=== PATIENT | female | born 1990 | race Caucasian/White ===

== ENCOUNTER 2023-11-07 16:39 | Emergency (ER) | payer MEDICAID ==
[~2023-11-07] VITALS: Ht 193 cm; Wt 81.6 kg
[2023-11-07 16:49] VITALS: BP 121/89; PULSE 78; RESP 16; TEMP 98; O2SAT 99
[2023-11-07] MEDS: methocarbamoL 500 MG TAB PO STA (17:35)
[2023-11-07] MEDS: LIDOCAINE 5% 1 EA PATCH TP ONE (17:36)
[2023-11-07] MEDS: KETOROLAC 30 MG/ML VIAL IM ONE (17:40)
[2023-11-07 17:50] LABS: APPEARANCE,URINE CLEAR (CLEAR); BILIRUBIN,URINE 1+ (NEGATIVE); BLOOD, URINE 3+ (NEGATIVE); COLOR,URINE YELLOW (YELLOW); LEUKOCYTE ESTERASE ,URINE NEGATIVE (NEGATIVE); NITRITE, URINE NEGATIVE (NEGATIVE); PROTEIN,URINE 2+ (NEGATIVE); UGLUCOSE NEGATIVE (NEGATIVE); UROBILINOGEN,URINE 0.2 EU/dL (0.2 - 1)
[2023-11-07 18:03] LABS: BACTERIA,URINE FEW /HPF (None Seen); ICTOTEST NEGATIVE (NEGATIVE); MUCUS,URINE None Seen /LPF (None Seen); RBC,URINE 20-50 /HPF (0-5); SQUAMOUS EPITHELIAL CELL,UR 0-3 (FEW) /LPF (0-3 (FEW)); TRICHOMONAS,URINE None Seen /HPF (None Seen); WHITE BLOOD CELL CASTS,URINE None Seen /LPF (None Seen); YEAST,URINE None Seen /HPF (None Seen)
[2023-11-07] MEDS ORDERED: IBUP-2213 PO (18:12)
[2023-11-07] MEDS ORDERED: METH-1681 PO (18:12)
[2023-11-07] MEDS ORDERED: LID5T TP (18:12)
[2023-11-07 18:44] VITALS: BP 103/56; PULSE 72; RESP 16; O2SAT 99
== END 2023-11-07 18:45 | disposition home or self-care (01) ==
LOC: MED 16:39
DX: M54.50 Low back pain, unspecified (principal); Z98.890 Other specified postprocedural states; Z79.1 Long term (current) use of non-steroidal anti-inflammatories (NSAID); Z79.899 Other long term (current) drug therapy
CPT/HCPCS: 81001; 81025; 87086; 96372; 99283; J1885